=== PATIENT | female | born 1990 | race Caucasian/White ===

== ENCOUNTER 2017-02-12 10:35 | Emergency (ER) | payer OTHER, BC ==
[2017-02-12] MEDS ORDERED: Sodium Chloride 0.9% 1,000 ML IV ONE (10:47)
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
--- NOTE | 2017-02-12 12:41 | CR ---
Right humerus: Two views of the right humerus were obtained. Comparison: No previous study. No fracture or other abnormality is appreciated. Impression: 1. No abnormality is appreciated on two-view right humerus study. Diagnostic code #1
--- NOTE | 2017-02-12 12:41 | CR ---
Chest: Frontal view of the chest was obtained. Comparison: No prior chest x-ray. Nodular density is seen within the left mid chest. This may represent vascular confluence or a calcified nodule. Lungs otherwise are clear. Minimal scoliosis is noted within the spine. Heart size and mediastinum are normal. Impression: 1. Incidental findings. Nothing acute is appreciated. Diagnostic code #2
[2017-02-12] MEDS ORDERED: Ibuprofen 600 MG Tab PO ONE (12:49)
--- NOTE | 2017-02-12 14:55 | CT ---
Head CT Technique: Multiple axial sections through the brain were obtained. Intravenous contrast was not utilized. Comparison: No previous intracranial imaging. Findings: Ventricles along with basal cisterns and sulci over the convexities are within normal limits for the patient's age. No abnormal parenchymal densities are seen. No evidence of intracranial hemorrhage. No midline shift or mass effect is seen. There is thinning of the calvarium on the posterior right side presumably developmental. No acute calvarial abnormality is seen. Impression: 1. Thinning of the calvarium posteriorly on the right side most likely developmental. 2. No acute intracranial abnormality is seen. Diagnostic code #2
[2017-02-12] MEDS ORDERED: Fluorescein 0.6 MG Ophth Strip EYERT ONE (15:12)
[2017-02-12] MEDS ORDERED: Benoxinate/Fluorescein 0.4-0.25% Ophth Soln 5 ML Bottle EYERT ONE (15:17)
== END 2017-02-12 16:00 | disposition home or self-care (01) ==
LOC: JD.ED 10:35
DX: S40.021A Contusion of right upper arm, initial encounter (principal); S60.511A Abrasion of right hand, initial encounter; S60.512A Abrasion of left hand, initial encounter; R51 Headache; Z88.8 Allergy status to other drugs, medicaments and biological substances; Z91.048 Other nonmedicinal substance allergy status; V57.5XXA Driver of pick-up truck or van injured in collision with fixed or stationary object in traffic accident, initial encounter; Y92.410 Unspecified street and highway as the place of occurrence of the external cause
CPT/HCPCS: 36415; 70450; 71010; 73060; 80053; 81001; 81025; 85025; 96360; 99285; A9270; J7040; 99284